=== PATIENT | female | born 1965 | race Caucasian/White ===

== ENCOUNTER 2017-09-22 10:27 | Emergency (ER) | payer OTHER ==
[2017-09-22] MEDS ORDERED: Aspirin 81 MG Tab.Chew PO ONE (10:35)
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
[2017-09-22 10:57] VITALS: BP 137/82
[2017-09-22] MEDS ORDERED: Ondansetron 4 MG/2 ML SDV IVPUSH ONE (11:03)
[2017-09-22] MEDS ORDERED: Sodium Chloride 0.9% 1,000 ML IV ONE (11:03)
[2017-09-22 11:16] LABS: CHLORIDE,CL 105 mmol/L (98-110); SODIUM,NA 138 mmol/L (136-146)
== END 2017-09-22 11:15 | disposition left against medical advice (07) ==
LOC: MW.ED 10:27
DX: R07.9 Chest pain, unspecified (principal); F17.210 Nicotine dependence, cigarettes, uncomplicated; I10 Essential (primary) hypertension; Z79.899 Other long term (current) drug therapy
CPT/HCPCS: 80053; 84484; 85025; 93005; 99285; A9270; 99283

== ENCOUNTER 2018-01-21 21:59 | Emergency (ER) | payer OTHER ==
[2018-01-21] MEDS ORDERED: Ondansetron 4 MG Tab.DIS PO ONE (22:42)
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
[2018-01-21 23:29] LABS: CHLORIDE,CL 105 mmol/L (98-107); SODIUM,NA 141 mmol/L (136-145)
[2018-01-22 04:58] VITALS: BP 184/92
== END 2018-01-22 00:34 | disposition home or self-care (01) ==
LOC: MW.ED 21:59
DX: R11.2 Nausea with vomiting, unspecified (principal); R19.7 Diarrhea, unspecified; I10 Essential (primary) hypertension; F17.210 Nicotine dependence, cigarettes, uncomplicated; Z79.82 Long term (current) use of aspirin; Z79.899 Other long term (current) drug therapy
CPT/HCPCS: 36415; 80053; 81001; 82375; 85025; 99284; A9270; 99283

== ENCOUNTER 2019-09-29 06:01 | Emergency (ER) | payer OTHER ==
[2019-09-29] MEDS ORDERED: Lidocaine 2% Viscous Solution 15 ML Cup PO ONE (06:25)
[2019-09-29] MEDS ORDERED: Benzocaine 20% Topical Spray UD MUCMEM ONE (06:25)
--- NOTE | 2019-09-29 06:25 | EDM.PDOC ---
ED HPI GENERAL MEDICAL PROBLEM - General Chief Complaint: ENT Problem Stated Complaint: DENTAL ISSUES- EXTREME PAIN Time Seen by Provider: 09/29/19 06:06 - History of Present Illness INITIAL COMMENTS - FREE TEXT/NARRATIVE: HISTORY AND PHYSICAL: History of present illness: Patient is a 54-year-old female with a history of hypertension and hypercholesterolemia as well as coronary artery disease per her testimony and who follows in our family practice clinic and presents with complaints of pain at several tooth areas but more specifically tooth #5. The patient has a dentist appointment on October 09 and she was concerned as she is having other vague symptoms and she wanted to make sure things were okay with the teeth. She has no facial swelling no fevers no chills no chest pain or shortness of breath and no vomiting. Review of systems: As per history of present illness and below otherwise all systems reviewed and negative. Past medical history: As per history of present illness and as reviewed below otherwise noncontributory. Surgical history: As per history of present illness and as reviewed below otherwise noncontributory. Social history: No reported history of drug or alcohol abuse. Family history: As per history of present illness and as reviewed below otherwise noncontributory. Physical exam: General: Well-developed well-nourished female who is nontoxic and vital signs were noted by me. Patient is speaking clearly and easily and is no visible swelling of her face HEENT: Atraumatic, normocephalic, pupils reactive, negative for conjunctival pallor or scleral icterus, mucous membranes moist, throat clear, neck supple, nontender, trachea midline. No cervical adenopathy or nuchal rigidity and there is no oropharyngeal swelling. On dental evaluation there are several areas of dental disease the most noteworthy and discomforting to the patient is tooth #5 where there is erosion of the gum line and visible brown discoloration consistent with a dental carry and there is only minimal gum swelling here but there is tenderness with tapping the tooth. Lungs: Clear to auscultation, breath sounds equal bilaterally, chest nontender. Heart: S1S2, regular and rhythm no overt murmurs Abdomen: Soft, nondistended, nontender. NABS Pelvis: Deferred Genitourinary: Deferred. Rectal: Deferred. Extremities: Atraumatic, negative for cords or calf pain. Neurovascular unremarkable. Neuro: Awake, alert, oriented. Cranial nerves II through XII unremarkable. Cerebellum unremarkable. Motor and sensory unremarkable throughout. Exam nonfocal. Diagnostics: [] Therapeutics: Dental balls Impression: pain in dental caries Definitive disposition and diagnosis as appropriate pending reevaluation and review of above. 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: Reports: Dysfunctional Uterine Bleeding, Musculoskeletal History: Reports: None Neurological History: Reports: None Psychiatric History: Reports: None Endocrine/Metabolic History: Reports: None Insulin Pump Model and Patient Care Provider: None Hematologic History: Reports: None Immunologic History: Reports: None Oncologic (Cancer) History: Reports: None Dermatologic History: Reports: None - Infectious Disease History Infectious Disease History: Reports: None - Past Surgical History Cardiovascular Surgical History: Reports: Carotid Stents Social & Family History - Family History Family Medical History: Noncontributory - Tobacco Use Smoking Status *Q: Current Some Day Smoker Years of Tobacco use: 40 Packs/Tins Daily: 1 - Caffeine Use Caffeine Use: Reports: Soda - Recreational Drug Use Recreational Drug Use: No ED ROS GENERAL - Review of Systems Review Of Systems: Comprehensive ROS is negative, except as noted in HPI. ED EXAM, GENERAL - Physical Exam Exam: See Below (see Dictation) Course - Vital Signs Last Recorded V/S: Last Vital Signs Temp 36.2 C 09/29/19 06:11 Pulse 81 09/29/19 06:11 Resp 18 09/29/19 06:11 BP 201/90 H 09/29/19 06:11 Pulse Ox 98 09/29/19 06:11 - Orders/Labs/Meds Orders: Active Orders 24 hr Category Date Time Status Benzocaine [Hurricaine One 20%] Med 09/29/19 06:25 Once 2 each MUCMEM ONETIME ONE Lidocaine 2% [Xylocaine 2% Viscous] Med 09/29/19 06:25 Once 15 ml PO ONETIME ONE Medication Orders Benzocaine (Hurricaine One 20%) 2 each MUCMEM ONETIME ONE Stop: 09/29/19 06:26 Lidocaine HCl (Xylocaine 2% Viscous) 15 ml PO ONETIME ONE Stop: 09/29/19 06:26 Meds: Medications Generic Name Dose Route Start Last Admin Trade Name Tom PRN Reason Stop Dose Admin Benzocaine 2 each 09/29/19 06:25 Hurricaine One 20% MUCMEM 09/29/19 06:26 ONETIME ONE Lidocaine HCl 15 ml 09/29/19 06:25 Xylocaine 2% Viscous PO 09/29/19 06:26 ONETIME ONE Departure - Departure Time of Disposition: 06:29 Disposition: Home, Self-Care 01 Condition: Good Clinical Impression: Pain due to dental caries - Discharge Information Referrals: Herbert Francisco MD [Primary Care Provider] - Forms: ED Department Discharge Additional Instructions: The following information is given to patients seen in the emergency department who are being discharged to home. This information is to outline your options for follow-up care. We provide all patients seen in our emergency department with a follow-up referral. The need for follow-up, as well as the timing and circumstances, are variable depending upon the specifics of your emergency department visit. If you don't have a primary care physician on staff, we will provide you with a referral. We always advise you to contact your personal physician following an emergency department visit to inform them of the circumstance of the visit and for follow-up with them and/or the need for any referrals to a consulting specialist. The emergency department will also refer you to a specialist when appropriate. This referral assures that you have the opportunity for followup care with a specialist. All of these measure are taken in an effort to provide you with optimal care, which includes your followup. Under all circumstances we always encourage you to contact your private physician who remains a resource for coordinating your care. When calling for followup care, please make the office aware that this follow-up is from your recent emergency room visit. If for any reason you are refused follow-up, please contact the [facility] emergency department at and ask to speak to the emergency department charge nurse. [facility] Primary care- Internal Medicine and Family [place] [id number] [place] [id number] Please keep all of your appointments as scheduled with your provider in our clinic as well as with the dentist. Use antibiotics as directed until they're finished to interrupt infection and use [id number] Tylenol and ibuprofen for pain management. You have been given dental balls which you may apply to any areas of discomfort as directed by nursing. Return to ER as needed and as discussed - My Orders Last 24 Hours: My Active Orders 09/29/19 06:25 Benzocaine [Hurricaine One 20%] 2 each MUCMEM ONETIME ONE Lidocaine 2% [Xylocaine 2% Viscous] 15 ml PO ONETIME ONE - Assessment/Plan Last 24 Hours: My Active Orders 09/29/19 06:25 Benzocaine [Hurricaine One 20%] 2 each MUCMEM ONETIME ONE Lidocaine 2% [Xylocaine 2% Viscous] 15 ml PO ONETIME ONE
[2019-09-29 06:52] VITALS: BP 169/75; PULSE 78
== END 2019-09-29 06:47 | disposition home or self-care (01) ==
LOC: MW.ED 06:01
DX: K02.9 Dental caries, unspecified (principal); I10 Essential (primary) hypertension; E78.00 Pure hypercholesterolemia, unspecified; I25.10 Atherosclerotic heart disease of native coronary artery without angina pectoris; F17.210 Nicotine dependence, cigarettes, uncomplicated; Z79.899 Other long term (current) drug therapy
CPT/HCPCS: 99282; A9270